=== PATIENT | male | born 1990 | race Two or more races ===

== ENCOUNTER 2017-06-27 16:13 | Emergency (ER) | payer OTHER ==
[~2017-06-27] VITALS: Ht 188 cm; Wt 59.1 kg
[2017-06-27 18:15] VITALS: BP 109/63
[2017-06-27] MEDS ORDERED: IBUPROFEN 800 MG TABLET PO ONE (18:30)
== END 2017-06-27 19:15 | disposition home or self-care (01) ==
LOC: EMS 16:22
DX: S60.221A Contusion of right hand, initial encounter (principal); J45.909 Unspecified asthma, uncomplicated; W18.39XA Other fall on same level, initial encounter; Y93.89 Activity, other specified; Y92.89 Other specified places as the place of occurrence of the external cause; Y99.8 Other external cause status
CPT/HCPCS: 99284